=== PATIENT | female | born 1965 | race Caucasian/White ===

== ENCOUNTER 2020-05-22 06:55 | Observation (INO) | payer BC ==
[~2020-05-22] VITALS: Ht 172.7 cm; Wt 79.9 kg
--- NOTE | 2020-05-22 07:25 | NUR ---
PATIENT FROM [facility]. ASSUMED CARE. PATIENT C/O 5-02/12 CHEST PAIN MID STERNAL RADIATES TO LEFT AND SHOULDER BLADE PAIN STARTED YESTERDAY BUT WAS AT 3-4 AND GETTING WORSE. ALSO STATES SOB. NO DOING ACTIVITES TO CAUSE CHEST PAIN. HAS FAMILY HISTORY MOM HAD HEART DISEASE AND FROM. IV INIITATED. PATIENT ON CONTINUOUS MONTIORING, O2 @2L AND REPEAT EKG COMPLETED. PATIENT DENIES REC DRUGS. +SMOKING AND OCCASIONAL ALCOHOL. ONLY TAKES ALEVE AT NIGHT.
[2020-05-22] MEDS ORDERED: LORazepam 2 MG/ML, 1ML IVPush ONE (07:30)
[2020-05-22] MEDS ORDERED: SODIUM CHLORIDE FLUSH 10ML SYR IVF ONE (07:30)
[2020-05-22] MEDS ORDERED: NITROGLYCERIN SINGLE TAB 0.4 MG SL PRN (07:30)
[2020-05-22] MEDS ORDERED: ASPIRIN 81 MG TABLET CHEW PO ONE (07:30)
[2020-05-22] MEDS ORDERED: NITROGLYCERIN SINGLE TAB 0.4 MG SL ONE ×2 (07:36→07:53)
[2020-05-22] MEDS ORDERED: ASPIRIN 81 MG TABLET CHEW ONE (07:36)
[2020-05-22] MEDS ORDERED: LORazepam 2 MG/ML, 1ML ONE (07:36)
--- NOTE | 2020-05-22 07:47 | NUR ---
PATIENT MEDICATED PER EMAR. SISTER ROGER CALLED [phone]. BEDSIDE REPORT GIVEN TO AURE BAUMANN
[2020-05-22 07:56] LABS: BASOPHILS # (AUTO) 0.05 x10^3/uL (0-0.1); BASOPHILS % (AUTO) 0 % (0-1); EOSINOPHILS # (AUTO) 0.28 x10^3/uL (0-0.4); EOSINOPHILS % (AUTO) 3 % (1-7); LYMPHOCYTES # (AUTO) 2.51 x10^3/uL (1-3.4); LYMPHOCYTES % (AUTO) 23 % (22-44); MD NO; MEAN CORPUSCULAR HEMOGLOBIN 30.7 pg (27.0-34.8); MEAN CORPUSCULAR HGB CONC 33.3 g/dL (32.4-35.8); MEAN CORPUSCULAR VOLUME 92.2 fL (80-100); MONOCYTES # (AUTO) 0.64 x10^3/uL (0.2-0.8); MONOCYTES % (AUTO) 6 % (2-9); NEUTROPHILS % (AUTO) 68 % (42-75); PLATELET COUNT 301 x10^3/uL (130-400); RED BLOOD COUNT 5.34 x10^6/uL (3.82-5.3); RED CELL DISTRIBUTION WIDTH 13.8 % (9.6-15.2)
[2020-05-22 08:07] LABS: ANION GAP 5 mmol/L (5-15); CALCIUM 9.6 mg/dL (8.5-10.1); CHLORIDE 106 mmol/L (98-107)
[2020-05-22 08:13] LABS: ALANINE AMINOTRANSFERASE 18 U/L (12-78); ALKALINE PHOSPHATASE 94 U/L (45-117); BILIRUBIN,TOTAL 0.5 mg/dL (0.2-1.0); CREATININE 0.86 mg/dL (0.55-1.02); TOTAL PROTEIN 7.8 g/dL (6.4-8.2); TROPONIN I < 0.015 ng/mL (0.000-0.045)
--- NOTE | 2020-05-22 08:26 | NUR ---
REPORT FROM SHANIQUA BAUMANN AT 0750, ASSUME CARE OF PT AT THAT TIME. ERP IN TO REVIEW RESULTS WITH PT. PT STATES CP IS DECREASED AT THIS TIME.
[2020-05-22] MEDS ORDERED: MAALOX/HYOSCYAMINE/LIDOCAINE 45 ML BTL ONE (08:29)
[2020-05-22] MEDS ORDERED: MAALOX/HYOSCYAMINE/LIDOCAINE 45 ML BTL PO ONE (08:30)
--- NOTE | 2020-05-22 08:58 | NUR ---
PT STATES "EASIER TO BREATHE" BUT STERNAL/EPIGASTRIC BURNING CP STILL PRESENT, RATED 4/10. PT TO BE ADMITTED, MED REC COMPLETED. CALL LIGHT WITHIN REACH.
[2020-05-22] MEDS ORDERED: ACETAMINOPHEN 325 MG TABLET PO PRN (11:00)
[2020-05-22] MEDS ORDERED: ONDANSETRON 2MG/ML, 2ML IVPush PRN (11:00)
[2020-05-22] MEDS ORDERED: SENNA/DOCUSATE TABLET PO PRN (11:00)
[2020-05-22] MEDS ORDERED: DIPHENHYDRAMINE 50 MG/ML, 1ML IVPush ONE (11:00)
[2020-05-22] MEDS ORDERED: POLYETHYLENE GLYCOL 17 GM PACKET PO PRN (11:00)
[2020-05-22] MEDS ORDERED: PROCHLORPERAZINE 5 MG/ML, 2ML IM ONE (11:00)
[2020-05-22] MEDS ORDERED: SODIUM CHLORIDE 0.9% 1,000ML IVBOLUS ONE (11:00)
[2020-05-22] MEDS ORDERED: ONDANSETRON ODT 4 MG PO PRN (11:00)
[2020-05-22] MEDS ORDERED: KETOROLAC 30 MG/1 ML IVPush ONE (11:00)
[2020-05-22 11:42] LABS: TROPONIN I < 0.015 ng/mL (0.000-0.045)
[2020-05-22 12:03] VITALS: BP 113/69
[2020-05-22] MEDS ORDERED: NAPR220T77 PO (12:41)
[2020-05-22] MEDS: ENOXAPARIN 40 MG/0.4 ML SQ SCH (13:12)
[2020-05-22 16:35] LABS: TROPONIN I < 0.015 ng/mL (0.000-0.045)
[2020-05-22] MEDS ORDERED: NICOTINE 14MG/24 HR PATCH.TD24 TD SCH (18:30)
[2020-05-22 19:35] VITALS: BP 147/81
[2020-05-22] MEDS ORDERED: ATORVASTATIN 40 MG TABLET PO SCH (21:00)
[2020-05-23 00:20] VITALS: BP 123/77
[2020-05-23 05:41] LABS: BASOPHILS # (AUTO) 0.07 x10^3/uL (0-0.1); BASOPHILS % (AUTO) 1 % (0-1); EOSINOPHILS # (AUTO) 0.37 x10^3/uL (0-0.4); EOSINOPHILS % (AUTO) 4 % (1-7); LYMPHOCYTES # (AUTO) 3.04 x10^3/uL (1-3.4); LYMPHOCYTES % (AUTO) 32 % (22-44); MD NO; MEAN CORPUSCULAR HEMOGLOBIN 30.6 pg (27.0-34.8); MEAN CORPUSCULAR HGB CONC 33.1 g/dL (32.4-35.8); MEAN CORPUSCULAR VOLUME 92.4 fL (80-100); MEAN PLATELET VOLUME 7.8 fL (7.4-10.4); MONOCYTES # (AUTO) 0.48 x10^3/uL (0.2-0.8); MONOCYTES % (AUTO) 5 % (2-9); NEUTROPHILS # (AUTO) 5.59 x10^3/uL (1.8-6.8); NEUTROPHILS % (AUTO) 59 % (42-75); PLATELET COUNT 266 x10^3/uL (130-400); RED BLOOD COUNT 4.78 x10^6/uL (3.82-5.3); RED CELL DISTRIBUTION WIDTH 13.3 % (9.6-15.2)
[2020-05-23 05:53] LABS: CHLORIDE 109 mmol/L (98-107)
[2020-05-23] MEDS ORDERED: ASPIRIN 81 MG TABLET EC PO SCH (06:00)
[2020-05-23 06:05] LABS: ALANINE AMINOTRANSFERASE 15 U/L (12-78); ALBUMIN 3.2 g/dL (3.4-5.0); ALKALINE PHOSPHATASE 73 U/L (45-117); ANION GAP 3 mmol/L (5-15); BILIRUBIN,TOTAL 0.5 mg/dL (0.2-1.0); CALCIUM 9.3 mg/dL (8.5-10.1); CHOL/HDL RATIO 4.9; CHOLESTEROL, TOTAL 269 mg/dL (140-239); CREATININE 0.75 mg/dL (0.55-1.02); HDL CHOL % 20 % (28-40); HDL CHOLESTEROL (DIRECT) 55 mg/dL (40-60); LDL CHOLESTEROL,CALCULATED 183 mg/dL (54-169); LDL/HDL RATIO 3.3 (0.5-3.0); TOTAL PROTEIN 6.6 g/dL (6.4-8.2); TRIGLYCERIDES 153 mg/dL (50-200); VLDL CHOLESTEROL 31 mg/dL (0-25)
[2020-05-23 06:07] LABS: MICROSCOPIC NOT IND
[2020-05-23 07:17] VITALS: BP 146/86
[2020-05-23] MEDS ORDERED: HALOPERIDOL 5 MG/ML IV ONE (09:00)
[2020-05-23] MEDS ORDERED: SODIUM CHLORIDE 0.9% 1,000ML IVBOLUS ONE (09:00)
[2020-05-23] MEDS ORDERED: DIPHENHYDRAMINE 50 MG/ML, 1ML IVPush ONE (09:00)
[2020-05-23] MEDS ORDERED: KETOROLAC 30 MG/1 ML IM ONE (09:00)
[2020-05-23] MEDS: ENOXAPARIN 40 MG/0.4 ML SQ SCH (11:19)
[2020-05-23 12:24] VITALS: BP 146/92
[2020-05-23] MEDS ORDERED: ATOR40TA78 PO (13:19)
== END 2020-05-23 15:00 | disposition home or self-care (01) ==
LOC: ED 09:04 → EDIP 09:23 → INTOOBSV 09:23 → 5SO 11:54 → DCLOUNGE 05-23 14:57
PROVIDERS: ADMIT Hospitalist; ATTEND Family Medicine
DX: R07.89 Other chest pain (principal); D72.829 Elevated white blood cell count, unspecified; E78.5 Hyperlipidemia, unspecified; M19.90 Unspecified osteoarthritis, unspecified site; G43.909 Migraine, unspecified, not intractable, without status migrainosus; L40.50 Arthropathic psoriasis, unspecified; F17.210 Nicotine dependence, cigarettes, uncomplicated; Z79.899 Other long term (current) drug therapy; Z90.710 Acquired absence of both cervix and uterus
CPT/HCPCS: 36415; 70450; 71045; 80053; 80061; 81003; 83036; 84145; 84484; 85025; 85379; 93005; 93017; 93308; 93356; 96372; 96374; 96375; 96376; 99285; G0378; J0780; J1200; J1630; J1650; J1885; J2060; J7030